=== PATIENT | female | born 1985 | race Caucasian/White ===

== ENCOUNTER 2016-12-24 02:05 | Emergency (ER) | payer OTHER ==
[~2016-12-24] VITALS: Ht 149.9 cm; Wt 59.0 kg
--- NOTE | 2016-12-24 02:05 | NUR ---
PT [facility] BLS. TAKEN TO BED 7
[2016-12-24 02:10] VITALS: BP 126/80
--- NOTE | 2016-12-24 02:10 | NUR ---
BIBA, C/O CHEST PAIN AND FLU LIKE SX X 1 WEEK. PT DENIES N/V/D; SKIN IS PINK/WARM/DRY; AAOX4 WITH EVEN AND STEADY GAIT; LUNGS CLEAR BL; HR EVEN AND REGULAR; PT DENIES ANY FEVER OR COUGH AT THIS TIME; PATIENT STATES PAIN OF 8/10 AT THIS TIME; VSS; PATIENT POSITIONED FOR COMFORT; HOB ELEVATED; BEDRAILS UP X2; BED DOWN. ER MD MADE AWARE OF PT STATUS.
--- NOTE | 2016-12-24 02:33 | NUR ---
Dr. Modi evaluating patient at bedside.
--- NOTE | 2016-12-24 02:50 | NUR ---
LABS DRAWN AT BEDSIDE
--- NOTE | 2016-12-24 02:52 | NUR ---
Epifanio esteban in [facility] - 12/24/16 at 0252 by LAY X-Ray at bedside.
--- NOTE | 2016-12-24 02:52 | NUR ---
X-Ray at bedside.
[2016-12-24] MEDS ORDERED: IBUPROFEN 800 MG TAB PO ONE (03:50)
[2016-12-24 03:57] VITALS: BP 126/80
== END 2016-12-24 03:58 | disposition home or self-care (01) ==
LOC: MED 02:05
DX: M94.0 Chondrocostal junction syndrome [Tietze] (principal); Z88.1 Allergy status to other antibiotic agents; M35.00 Sjogren syndrome, unspecified; Z90.89 Acquired absence of other organs
CPT/HCPCS: 36415; 71010; 80053; 83880; 84484; 85025; 85610; 85730; 93005; 99285; Q0092